=== PATIENT | female | born 1985 | race Caucasian/White ===

== ENCOUNTER 2018-03-12 09:50 | Day surgery (SDC) | payer BC ==
[~2018-03-12 09:50] MED LIST: Lactated Ringers 1,000 ML IV SCH; Sodium Chloride 0.9% 10 ML Syringe FLUSH PRN
[2018-03-12] MEDS ORDERED: Propofol 200 MG/20 ML SDV IV ONE (11:00)
--- NOTE | 2018-03-12 12:08 | PCM.OPNOTE ---
- General Post-Op/Procedure Note Date of Surgery/Procedure: 03/12/18 Operative Procedure(s): egd with bx. c scope with biopsy Findings: gastritis esophagitis sigmoid colon polyp hemorrhoids Pre Op Diagnosis: epigastric pain and hematochezia Post-Op Diagnosis: gastritis. esophagitis. sigmoid colon polyp. hemorrhoids Anesthesia Technique: [facility] [place] Primary Surgeon: Saturnino Bahena Anesthesia Provider: Ronaldo Maurre Pathology: stomach, esophagus and sigmoid polyp Complications: None Condition: Good Free Text/Narrative:: see dictation
--- NOTE | 2018-03-12 19:38 | OR ---
DATE OF OPERATION: 03/12/2018 SURGEON: Saturnino Bahena MD PROCEDURE PERFORMED: EGD, cold forceps biopsy, and colonoscopy with hot loop snare. INDICATIONS FOR PROCEDURE: This is a 32-year-old white female with symptomatic reflux. In addition, she has been having some hematochezia, so she has been offered and accepted both an upper and lower endoscopy. DESCRIPTION OF PROCEDURE: After an excellent IV sedation was administered, the bite block was inserted. The flexible endoscope was passed without difficulty down the patient's esophagus into the stomach. Stomach was insufflated. Scope was passed through the pylorus to the second portion of duodenum and slowly withdrawn. The following findings were noted. Duodenum was unremarkable. Stomach demonstrated some diffuse gastritis. Biopsies were taken. GE junction, erythema was noted in the distal 2-3 cm. Biopsies were taken of the distal esophagus. Remainder of the esophageal exam was unremarkable. The stomach was deflated. Scope was removed. Our attention was then turned to the colon. Digital rectal exam was performed. No marked abnormality was noted. Flexible colonoscope was inserted and advanced to the cecum without difficulty. The prep was marginal. We were able to irrigate and aspirate and get an excellent view of the colonic mucosa. The following findings were noted. Ascending colon, unremarkable. Transverse colon, unremarkable. Descending colon, unremarkable. Sigmoid, a pedunculated polyp, biopsied with a hot loop snare and sent for permanent. Rectum and anus, unremarkable. On retroflexion of the scope, there was some evidence of internal hemorrhoids. Colon was deflated. Scope was removed. Patient tolerated procedure well. Results by letter. /[id number] /MODL
== END 2018-03-12 13:08 | disposition home or self-care (01) ==
LOC: FB.SDS 09:50
PROVIDERS: ATTEND Surgery
DX: K92.1 Melena (principal); K21.9 Gastro-esophageal reflux disease without esophagitis; D12.5 Benign neoplasm of sigmoid colon; K64.8 Other hemorrhoids; K29.50 Unspecified chronic gastritis without bleeding; K20.9 Esophagitis, unspecified; H52.209 Unspecified astigmatism, unspecified eye; H52.10 Myopia, unspecified eye; J45.909 Unspecified asthma, uncomplicated; E66.9 Obesity, unspecified; Z68.44 Body mass index [BMI] 60.0-69.9, adult; F17.210 Nicotine dependence, cigarettes, uncomplicated; Z79.899 Other long term (current) drug therapy; F33.9 Major depressive disorder, recurrent, unspecified; Z88.8 Allergy status to other drugs, medicaments and biological substances
CPT/HCPCS: 43239; 45385; 70360; 80048; 81025; 85025; 87880; 88305; 88313; 88342; 96361; 96374; 96375; 99283; A9270; J1200; J2704; J2930; J7030; J7120

== ENCOUNTER 2018-03-12 18:52 | Emergency (ER) | payer BC ==
[2018-03-12] MEDS ORDERED: diphenhydrAMINE 50 MG/ML SDV IVPUSH STA (19:02)
[2018-03-12] MEDS ORDERED: Sodium Chloride 0.9% 1,000 ML IV SCH (19:15)
[2018-03-12] MEDS ORDERED: methylPREDNISolone Sodium Succinate 125 MG/2 ML SDV IVPUSH ONE (20:39)
[2018-03-12] MEDS ORDERED: Amoxicillin/Clavulanate K 875-125 MG Tab PO ONE (20:56)
--- NOTE | 2018-03-12 20:57 | EDM.PDOC ---
ED HPI GENERAL MEDICAL PROBLEM - General Chief Complaint: ENT Problem Stated Complaint: IRRITATED THROAT Time Seen by Provider: 03/12/18 18:52 Source of Information: Reports: Patient, Family History Limitations: Reports: No Limitations - History of Present Illness INITIAL COMMENTS - FREE TEXT/NARRATIVE: 32 y.o.w.f s/p upper and lower endoscopy in [place], d/c'd today, came to the ed because she thinks her tongue is swollen and she has a sore throat. Pt denies H/ O angioedema and does not take Lisinopril. Pt felt a blister at her right ant tongue as well. Pt stated she was intubated for her upper endoscopy because of the anatomy of her neck. No N/V/D or any other acute medical issues. BP 128/78 RR 18 Pulse ox 99% on RA pulse 78 temp 36.8 Onset Date: 03/12/18 Onset Time: 09:00 Duration: Hour(s): Location: Reports: Face Quality: Reports: Other (swelling of tongue ) Severity: Mild Improves with: Reports: Rest Worsens with: Reports: Movement Context: Reports: Other Associated Symptoms: Reports: No Other Symptoms throat and tongue Pain Score (Numeric/FACES): 8 - Related Data Allergies Allergy/AdvReac Type Severity Reaction Status Date / Time fluticasone [From Flonase] AdvReac Other Verified 03/12/18 19:05 Home Meds: Home Meds Acetaminophen/Caffeine [[facility] Tension Headache Gelcap] 2 each PO DAILY 03/11/18 [ History] Albuterol Sulfate 1.25 mg IH QID PRN 03/11/18 [History] Albuterol Sulfate [Proair Hfa] 2 puff INH Q4H PRN 03/11/18 [History] Beclomethasone Dipropionate [Qvar 40 Mcg] 2 puff INH BID 03/11/18 [History] Levocetirizine Dihydrochloride [Xyzal] 5 mg PO BEDTIME 03/11/18 [History] Montelukast Sodium 10 mg PO BEDTIME 03/11/18 [History] Pantoprazole Sodium 40 mg PO DAILY 03/11/18 [History] Phentermine HCl [Adipex-P] 37.5 mg PO DAILY 03/11/18 [History] Sucralfate 1 gm PO QID 03/11/18 [History] Venlafaxine HCl [Venlafaxine ER] 75 mg PO DAILY 03/11/18 [History] Venlafaxine HCl [Venlafaxine ER] 150 mg PO DAILY 03/11/18 [History] tiZANidine [Zanaflex] 0.5 - 1 mg PO TID PRN 03/11/18 [History] Amoxicillin 500 mg PO TID #30 tab 03/12/18 [Rx] predniSONE 20 mg PO WITHBREAKFAST #3 tab 03/12/18 [Rx] Past Medical History HEENT History: Reports: Impaired Vision Cardiovascular History: Reports: None Respiratory History: Reports: Asthma Gastrointestinal History: Reports: GERD, Other (See Below) Other Gastrointestinal History: CHRONIC INTERMITTENT DIARRHEA/ CONSTIPATION Genitourinary History: Reports: None 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 History: I PARA I Musculoskeletal History: Reports: None Neurological History: Reports: Migraines Psychiatric History: Reports: Anxiety Endocrine/Metabolic History: Reports: Obesity/BMI 30+ Hematologic History: Reports: None Immunologic History: Reports: None Oncologic (Cancer) History: Reports: None Dermatologic History: Reports: None - Infectious Disease History Infectious Disease History: Reports: Chicken Pox - Past Surgical History Head Surgeries/Procedures: Reports: None HEENT Surgical History: Reports: Oral Surgery Female Surgical History: Reports: Section Social & Family History - Family History Family Medical History: Noncontributory GI: Reports: GI bleed - Tobacco Use Smoking Status *Q: Current Every Day Smoker Years of Tobacco use: 12 Packs/Tins Daily: 1 - Caffeine Use Caffeine Use: Reports: Coffee - Recreational Drug Use Recreational Drug Use: No ED ROS ENT - Review of Systems Review Of Systems: See Below Constitutional: Reports: No Symptoms HEENT: Reports: Throat Pain, Other (swollen tongue) Respiratory: Reports: No Symptoms Cardiovascular: Reports: No Symptoms Endocrine: Reports: No Symptoms GI/Abdominal: Reports: No Symptoms : Reports: No Symptoms Musculoskeletal: Reports: No Symptoms Skin: Reports: No Symptoms Neurological: Reports: No Symptoms Psychiatric: Reports: No Symptoms Hematologic/Lymphatic: Reports: No Symptoms Immunologic: Reports: No Symptoms ED EXAM, ENT - Physical Exam Exam: See Below Exam Limited By: No Limitations General Appearance: Alert, Mild Distress, Obese (morbid) Eye Exam: Bilateral Eye: Normal Inspection Ears: Normal External Exam, Normal Canal, Hearing Grossly Normal, Normal TMs Nose: Normal Inspection, Normal Mucousa, No Blood Mouth/Throat: Normal Gums, Normal Lips, Normal Oropharynx, Tongue Swelling (nl tongue, however, pt feels her tongue is swollen) Head: Atraumatic, Normocephalic Neck: Normal Inspection, Supple, Non-Tender, Full Range of Motion Respiratory/Chest: No Respiratory Distress, Lungs Clear, Normal Breath Sounds, No Accessory Muscle Use, Chest Non-Tender Cardiovascular: Normal Peripheral Pulses, Regular Rate, Rhythm, No Edema, No Gallop, No JVD, No Murmur, No Rub GI/Abdominal: Normal Bowel Sounds, Soft, Non-Tender, No Organomegaly, No Distention, No Abnormal Bruit, No Mass (Female) Exam: Deferred Rectal (Female) Exam: Deferred Back: Normal Inspection, Full Range of Motion Extremities: Normal Inspection, Normal Range of Motion, Non-Tender, No Pedal Edema Neurological: Alert, Oriented, CN II-XII Intact, Normal Cognition, Normal Gait, Normal Reflexes, No Motor/Sensory Deficits Psychiatric: Normal Affect, Normal Mood Skin: Warm, Dry, Intact, Normal Color, No Rash, Lymphangitis Lymphatic: No Adenopathy Course - Vital Signs Text/Narrative:: 32 y.o.w.f s/p upper and lower endoscopy in [place], d/c'd today, came to the ed because she thinks her tongue is swollen and she has a sore throat. Pt denies H/ O angioedema and does not take Lisinopril. Pt felt a blister at her right ant tongue as well. Pt stated she was intubated for her upper endoscopy because of the anatomy of her neck. No N/V/D or any other acute medical issues. BP 128/78 RR 18 Pulse ox 99% on RA pulse 78 temp 36.8 PE: Morbid obese 32 y.o.w.f with sore throat and a blister at her right tongue Imaging: neck soft tissue: NAD, no epiglotitis Labs: CBC/BMP WBC was 13K, however RST was positive Impression: Strep throat. tongue blister, possible angioedema (tongue swelling) Tx: Augmentin, solu medrol, NS, [place] Reexam: Improved Plan: D/C with instructions Last Recorded V/S: Last Vital Signs Temp 36.6 C 08/15/18 21:10 Pulse 82 03/12/18 21:10 Resp 18 03/12/18 21:10 BP 119/69 03/12/18 21:10 Pulse Ox 100 03/12/18 21:10 - Orders/Labs/Meds Orders: Active Orders 24 hr Category Date Time Status Neck Soft Tissue [CR] Stat Exams 03/12/18 19:02 Taken STREP SCRN A RAPID W CULT CONF [RM] Stat Lab 03/12/18 20:40 Ordered Labs: Laboratory Tests 03/12/18 03/12/18 Range/Units 19:15 19:15 WBC 13.0 H (4.5-12.0) X10-3/uL RBC 5.11 (3.23-5.20) x10(6)uL Hgb 14.7 (11.5-15.5) g/dL Hct 42.8 (30.0-51.3) % MCV 83.8 (80-96) fL MCH 28.8 (27.7-33.6) pg MCHC 34.3 (32.2-35.4) g/dL RDW 12.4 (11.5-15.5) % Plt Count 245 (125-369) X10(3)uL MPV 8.6 (7.4-10.4) fL Neut % (Auto) 69.6 (46-82) % Lymph % (Auto) 26.0 (13-37) % [place] % (Auto) 3.8 L (4-12) % Eos % (Auto) 0 L (1.0-5.0) % Baso % (Auto) 0 (0-2) % Neut # (Auto) 9.0 H (1.6-8.3) # Lymph # (Auto) 3.4 (0.6-5.0) # [place] # (Auto) 0.5 (0.0-1.3) # Eos # (Auto) 0.0 (0.0-0.8) # Baso # (Auto) 0.1 (0.0-0.2) # Sodium 138 (135-145) mmol/L Potassium 4.0 (3.5-5.3) mmol/L Chloride 104 (100-110) mmol/L Carbon Dioxide 26 (21-32) mmol/L BUN 11 (7-18) mg/dL Creatinine 0.8 (0.55-1.02) mg/dL Est Cr Clr Drug Dosing TNP Estimated GFR (MDRD) > 60 (>60) BUN/Creatinine Ratio 13.8 (9-20) Glucose 88 (80-116) mg/dL Calcium 8.9 (8.6-10.2) mg/dL Meds: Medications Discontinued Medications Generic Name Dose Route Start Last Admin Trade Name Freq PRN Reason Stop Dose Admin Amoxicillin/Clavulanate Potassium 1 tab 03/12/18 20:56 03/12/18 20:59 Augmentin 875 Mg/125 Mg PO 03/12/18 20:57 1 tab ONETIME ONE Administration Diphenhydramine HCl 25 mg 03/12/18 19:02 03/12/18 19:21 Benadryl IVPUSH 03/12/18 19:03 25 mg ONETIME STA Administration Sodium Chloride 1,000 mls @ 125 mls/hr 03/12/18 19:15 03/12/18 19:20 Normal Saline IV 125 mls/hr ASDIRECTED ELIANA Administration Methylprednisolone Sodium Succinate 125 mg 03/12/18 20:39 03/12/18 20:43 Solu-Medrol IVPUSH 03/12/18 20:40 125 mg ONETIME ONE Administration Departure - Departure Time of Disposition: 21:00 Disposition: Home, Self-Care 01 Condition: Good Clinical Impression: Strep throat Angioedema Qualifiers: Encounter type: initial encounter Qualified Code(s): T78.3XXA - Angioneurotic edema, initial encounter - Discharge Information *PRESCRIPTION DRUG MONITORING PROGRAM REVIEWED*: Yes *COPY OF PRESCRIPTION DRUG MONITORING REPORT IN PATIENT ALMA: Yes Prescriptions: Amoxicillin 500 mg PO TID #30 tab predniSONE 20 mg PO WITHBREAKFAST #3 tab Instructions: Strep Throat, [id number] Referrals: Shawnee Mckeon NP [Primary Care Provider] - Forms: ED Department Discharge Additional Instructions: Please increase water intake, please take amoxicillin and prednison as recommended, please f/u, come back if your symptoms get worse acutely - My Orders Last 24 Hours: My Active Orders 03/12/18 19:02 Neck Soft Tissue [CR] Stat 03/12/18 20:40 STREP SCRN A RAPID W CULT CONF [RM] Stat - Assessment/Plan Last 24 Hours: My Active Orders 03/12/18 19:02 Neck Soft Tissue [CR] Stat 03/12/18 20:40 STREP SCRN A RAPID W CULT CONF [RM] Stat
== END 2018-03-12 21:10 | disposition home or self-care (01) ==
LOC: FB.ED 18:52
DX: T78.3XXA Angioneurotic edema, initial encounter (principal); S00.522A Blister (nonthermal) of oral cavity, initial encounter; J02.0 Streptococcal pharyngitis; F17.210 Nicotine dependence, cigarettes, uncomplicated; E66.9 Obesity, unspecified; Z88.8 Allergy status to other drugs, medicaments and biological substances; Z79.899 Other long term (current) drug therapy
CPT/HCPCS: 70360; 80048; 85025; 87880; 96361; 96374; 96375; 99283; A9270; J1200; J2930; J7030

== ENCOUNTER 2019-12-11 09:05 | Emergency (ER) | payer BC ==
[2019-12-11] MEDS ORDERED: Ibuprofen 600 MG Tab PO ONE (10:00)
--- NOTE | 2019-12-11 10:03 | EDM.PDOC ---
ED HPI GENERAL MEDICAL PROBLEM - General Chief Complaint: Lower Extremity Injury/Pain Stated Complaint: RT LEG INJURY Time Seen by Provider: 12/11/19 09:59 Source of Information: Reports: Patient History Limitations: Reports: No Limitations - History of Present Illness INITIAL COMMENTS - FREE TEXT/NARRATIVE: Patient complains of right lower leg and foot pain after getting her foot caught under a cabinet and twisting the leg @2 hours ago. Pain is mainly located to the right ankle, but also complains of right foot and knee pain to a lesser degree. 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: Acetaminophen, NSAIDS Right Lower Leg Pain Score (Numeric/FACES): 6 - Related Data Allergies Allergy/AdvReac Type Severity Reaction Status Date / Time fluticasone [From Flonase] Allergy Bleeding Verified 12/11/19 09:24 Home Meds: Home Meds Acetaminophen/HYDROcodone [[place] 325-5 MG] 1 - 2 tab PO Q6H PRN #20 tab [Rx] Fexofenadine [Jana] 180 mg PO DAILY 12/11/19 [History] Montelukast [Singulair] 10 mg PO DAILY 12/11/19 [History] Omeprazole 20 mg PO DAILY 12/11/19 [History] Venlafaxine [Effexor] 75 mg PO DAILY 12/11/19 [History] Past Medical History HEENT History: Reports: Allergic Rhinitis Cardiovascular History: Reports: Heart Murmur Other Cardiovascular History: as a child Respiratory History: Reports: Asthma 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 READING History: Reports: Polycystic Ovaries, Psychiatric History: Reports: Anxiety, Depression - Past Surgical History HEENT Surgical History: Reports: Other (See Below) Other HEENT Surgeries/Procedures: oral surgery Social & Family History - Family History Family Medical History: Noncontributory - Tobacco Use Smoking Status *Q: Current Every Day Smoker Years of Tobacco use: 15 Packs/Tins Daily: 0.5 - Caffeine Use Caffeine Use: Reports: Coffee, Energy Drinks, Soda - Recreational Drug Use Recreational Drug Use: No Review of Systems - Review of Systems Review Of Systems: Comprehensive ROS is negative, except as noted in HPI. ED EXAM, GENERAL - Physical Exam Exam: See Below Exam Limited By: No Limitations General Appearance: Alert, WD/WN, No Apparent Distress Head: Atraumatic, Normocephalic Neck: Full Range of Motion Respiratory/Chest: No Respiratory Distress Peripheral Pulses: 2+: Dorsalis Pedis (R) Extremities: Normal Capillary Refill, Other (tenderness to right medial foot, right lateral ankle, right distal lower leg and right posterior knee. No deformities.) Neurological: Alert, Normal Cognition, No Motor/Sensory Deficits Psychiatric: Normal Affect, Normal Mood Skin Exam: Warm, Dry, Intact ED TRAUMA EXTREMITY PROCEDURES - Splinting Right Lower Extremity Splint Site: Right short leg Pre-Procedure NV Status: Normal Post-Procedure NV Status: Normal Splint Material: Other (Orthoglass) Splint Design: Posterior Applied & Form Fitted By: Provider Provider Post-Splint Application NV Check: NV Status Normal, Good Position Complications: No Course - Vital Signs Last Recorded V/S: Last Vital Signs Temp 36.5 C 12/11/19 09:25 Pulse 78 12/11/19 09:25 Resp 20 12/11/19 09:25 BP 123/61 12/11/19 09:25 Pulse Ox 100 12/11/19 09:25 - Orders/Labs/Meds Orders: Active Orders 24 hr Category Date Time Status Foot Comp Min 3V Rt [CR] Stat Exams 12/11/19 09:58 Taken Tibia Fibula Rt [CR] Stat Exams 12/11/19 09:58 Taken Meds: Medications Discontinued Medications Generic Name Dose Route Start Last Admin Trade Name Freq PRN Reason Stop Dose Admin Ibuprofen 600 mg 12/11/19 10:00 12/11/19 10:05 Motrin PO 12/11/19 10:01 600 mg ONETIME ONE Administration - Radiology Interpretation Free Text/Narrative:: Right Foot Xray: No osseous abnormalities. (ED provider interpretation) Right Tib-Fib Xray: Non displace right distal fibula fracture. (ED provider interpretation) Departure - Departure Time of Disposition: 11:31 Disposition: Home, Self-Care 01 Condition: Good Clinical Impression: Fracture of distal fibula Qualifiers: Encounter type: initial encounter Fracture type: closed Fracture morphology: unspecified fracture morphology Laterality: right Qualified Code(s): S82.831A - Other fracture of upper and lower end of right fibula, initial encounter for closed fracture - Discharge Information *PRESCRIPTION DRUG MONITORING PROGRAM REVIEWED*: No *COPY OF PRESCRIPTION DRUG MONITORING REPORT IN PATIENT [place]MA: Not Applicable Prescriptions: Acetaminophen/HYDROcodone [[place] 325-5 MG] 1 - 2 tab PO Q6H PRN #20 tab PRN Reason: Pain Instructions: Crutch Use, Adult, [id number], Cast or Splint Care, Adult, Easy -to-Read, Nondisplaced Fibular Ankle Fracture Treated With Immobilization, Adult Referrals: Ravindra Hua MD [Ordering Only Provider] - 1 Week Forms: ED Department Discharge Additional Instructions: Fill the prescription for [place] and take as directed. Follow up with Orthopedic Surgery in 1 week (Dr. Hua @[facility]). Elevate the leg. Ice the area affected. Weight bear as tolerated. Sepsis Event Note - Evaluation Sepsis Screening Result: No Definite Risk - Focused Exam Vital Signs: Vital Signs Temp Pulse Resp BP Pulse Ox 12/11/19 09:25 36.5 C 78 20 123/61 100 Date Exam was Performed: 12/11/19 Time Exam was Performed: 11:28 - My Orders Last 24 Hours: My Active Orders 12/11/19 09:58 Foot Comp Min 3V Rt [CR] Stat Tibia Fibula Rt [CR] Stat - Assessment/Plan Last 24 Hours: My Active Orders 12/11/19 09:58 Foot Comp Min 3V Rt [CR] Stat Tibia Fibula Rt [CR] Stat
== END 2019-12-11 11:57 | disposition home or self-care (01) ==
LOC: MERGE 09:05 → FB.ED 09:05
DX: S82.831A Other fracture of upper and lower end of right fibula, initial encounter for closed fracture (principal); J45.909 Unspecified asthma, uncomplicated; F41.9 Anxiety disorder, unspecified; F32.9 Major depressive disorder, single episode, unspecified; F17.210 Nicotine dependence, cigarettes, uncomplicated; Z79.899 Other long term (current) drug therapy; Z88.8 Allergy status to other drugs, medicaments and biological substances; X50.1XXA Overexertion from prolonged static or awkward postures, initial encounter
CPT/HCPCS: 29515; 73590; 73630; 99283; A9270

== ENCOUNTER 2021-04-13 18:05 | Emergency (ER) | payer BC ==
[2021-04-13] MEDS ORDERED: Morphine 4 MG/ML VIAL IVPUSH ONE (18:22)
[2021-04-13] MEDS ORDERED: Ketorolac 30 MG/ML SDV IVPUSH ONE (18:23)
[2021-04-13] MEDS ORDERED: Sodium Chloride 0.9% 1,000 ML IV ONE (18:23)
[2021-04-13] MEDS ORDERED: Ondansetron 4 MG/2 ML SDV IVPUSH ONE (18:23)
[2021-04-13] MEDS ORDERED: Iopamidol 755 MG/ML 150 ML Bottle IV ONE (19:57)
--- NOTE | 2021-04-13 20:56 | EDM.PDOC ---
ED HPI GENERAL MEDICAL PROBLEM - General Chief Complaint: Abdominal Pain Stated Complaint: STOMACH PAIN Time Seen by Provider: 04/13/21 18:25 Source of Information: Reports: Patient History Limitations: Reports: No Limitations - History of Present Illness INITIAL COMMENTS - FREE TEXT/NARRATIVE: Patient presented to the ED because of right sided abdominal pain which started at 11:30 AM today. The pain is sharp and cramping, 8/10, with associated N/V x3.She has a chronic diarrhea due to her IBS. She also has decrease urination today. There is no fever but has some chills. Right Abdomen Pain Score (Numeric/FACES): 8 - Related Data Allergies Allergy/AdvReac Type Severity Reaction Status Date / Time fluticasone [From Flonase] AdvReac Other Verified 03/12/18 19:05 Home Meds: Home Meds Acetaminophen/Caffeine [[facility] Tension Headache Gelcap] 2 each PO DAILY 03/11/18 [History] Albuterol Sulfate 1.25 mg IH QID PRN 03/11/18 [History] Albuterol Sulfate [Proair Hfa] 2 puff INH Q4H PRN 03/11/18 [History] Montelukast Sodium 10 mg PO BEDTIME 03/11/18 [History] Venlafaxine HCl [Venlafaxine ER] 150 mg PO DAILY 03/11/18 [History] Fexofenadine [Jana] 180 mg PO DAILY 12/11/19 [History] Omeprazole 20 mg PO DAILY 12/11/19 [History] Norethindrone [Jessica] 0.35 mg PO DAILY 04/13/21 [History] Ondansetron [Zofran ODT] 4 mg PO Q4H PRN #5 tab.dis 04/13/21 [Rx] Past Medical History HEENT History: Reports: Allergic Rhinitis, Impaired Vision Cardiovascular History: Reports: Heart Murmur, None Other Cardiovascular History: as a child Respiratory History: Reports: Asthma Gastrointestinal History: Reports: GERD, Other (See Below) Other Gastrointestinal History: CHRONIC INTERMITTENT DIARRHEA/ CONSTIPATION Genitourinary History: Reports: None 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: Reports: Polycystic Ovaries, Other 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: I PARA I Musculoskeletal History: Reports: None Neurological History: Reports: Migraines Psychiatric History: Reports: Anxiety, Depression Endocrine/Metabolic History: Reports: Obesity/BMI 30+ Hematologic History: Reports: None Immunologic History: Reports: None Oncologic (Cancer) History: Reports: None Dermatologic History: Reports: None - Infectious Disease History Infectious Disease History: Reports: Chicken Pox - Past Surgical History Head Surgeries/Procedures: Reports: None HEENT Surgical History: Reports: Other (See Below), Oral Surgery Other HEENT Surgeries/Procedures: oral surgery Female Surgical History: Reports: Section Social & Family History - Family History Family Medical History: No Pertinent Family History GI: Reports: GI bleed - Tobacco Use Tobacco Use Status *Q: Current Every Day Tobacco User Years of Tobacco use: 10 Packs/Tins Daily: 0.7 - Caffeine Use Caffeine Use: Reports: Soda ED ROS GENERAL - Review of Systems Review Of Systems: See Below Constitutional: Reports: No Symptoms HEENT: Reports: No Symptoms Respiratory: Reports: No Symptoms Cardiovascular: Reports: No Symptoms Endocrine: Reports: No Symptoms GI/Abdominal: Reports: Abdominal Pain, Diarrhea, Nausea, Vomiting : Reports: No Symptoms Musculoskeletal: Reports: No Symptoms Skin: Reports: No Symptoms Neurological: Reports: No Symptoms Psychiatric: Reports: No Symptoms ED EXAM, GI/ABD - Physical Exam Exam: See Below Exam Limited By: No Limitations General Appearance: Alert, No Apparent Distress Ears: Normal External Exam, Normal Canal Nose: Normal Inspection, Normal Mucosa, No Blood Throat/Mouth: Normal Inspection, Normal Lips, Normal Teeth, Normal Gums, Normal Oropharynx, Normal Voice Head: Atraumatic, Normocephalic Neck: Normal Inspection, Supple, Non-Tender, Full Range of Motion Respiratory/Chest: No Respiratory Distress, Lungs Clear, Normal Breath Sounds, No Accessory Muscle Use, Chest Non-Tender Cardiovascular: Normal Peripheral Pulses, Regular Rate, Rhythm, No Edema, No Gallop, No JVD, No Murmur GI/Abdominal Exam: Soft, Other (RUQ/RLQ tenderness) Back Exam: Normal Inspection Extremities: Normal Inspection Neurological: Alert, Oriented, CN II-XII Intact Psychiatric: Normal Affect Course - Vital Signs Text/Narrative:: Lab/CT-abd/pelvis result was reviewed and discussed with patient NS 1 L bolus Zofran 4 mg IV x1 Toradol 30 mg IV x1 Morphine 4 mg IV x1 Last Recorded V/S: Last Vital Signs Temp 36.6 C 04/13/21 18:20 Pulse 101 H 04/13/21 18:20 Resp 18 04/13/21 18:20 BP 147/81 H 04/13/21 18:20 Pulse Ox 96 04/13/21 18:20 - Orders/Labs/Meds Orders: Active Orders 24 hr Category Date Time Status Abdomen Pelvis w Cont [CT] Stat Exams 04/13/21 19:51 Taken Sodium Chloride 0.9% [Normal Saline] 1,000 ml Med 04/13/21 18:23 Active IV .BOLUS Medication Orders Sodium Chloride (Normal Saline) 1,000 mls @ 999 drops/hr IV .BOLUS ONE Stop: 04/14/21 09:23 Last Admin: 04/13/21 18:40 Dose: 999 drops/hr Documented by: AILIN Labs: Laboratory Tests 04/13/21 04/13/21 04/13/21 Range/Units 19:00 19:00 19:00 WBC 14.6 H (3.0-10.3) x10-3/uL RBC 5.35 H (3.60-5.20) x10(6)uL Hgb 14.4 (11.4-15.5) g/dL Hct 44.2 (34.2-48.2) % MCV 82.5 (76.7-100.5) fL MCH 27.0 (23.9-33.9) pg MCHC 32.7 (31.9-34.8) g/dL RDW 13.8 (12.3-16.5) % Plt Count 307 (151-488) x10(3)uL MPV 8.5 (7.1-12.4) fL Neut % (Auto) 79.2 H (30.8-76.2) % Lymph % (Auto) 16.2 L (18.4-52.1) % [place] % (Auto) 2.8 L (4.4-15.7) % Eos % (Auto) 1.5 (0.6-8.1) % Baso % (Auto) 0.3 (0.2-1.5) % Neut # (Auto) 11.6 H (1.5-6.3) x10-3/uL Lymph # (Auto) 2.4 (1.0-4.4) x10-3/uL [place] # (Auto) 0.4 (0.3-1.0) x10-3/uL Eos # (Auto) 0.2 (0.0-0.8) x10-3/uL Baso # (Auto) 0.0 (0.0-0.1) x10-3/uL Sodium 140 (135-145) mmol/L Potassium 4.2 (3.5-5.3) mmol/L Chloride 103 (100-110) mmol/L Carbon Dioxide 25 (21-32) mmol/L BUN 10 (7-18) mg/dL Creatinine 0.8 (0.55-1.02) mg/dL Est Cr Clr Drug Dosing 88.32 mL/min Estimated GFR (MDRD) > 60 (>60) BUN/Creatinine Ratio 12.5 (9-20) Glucose 105 (80-116) mg/dL Calcium 9.1 (8.6-10.2) mg/dL Total Bilirubin 0.7 (0.1-1.3) mg/dL AST 22 (5-25) IU/L ALT 41 H (12-36) U/L Alkaline Phosphatase 83 (56-112) IU/L Total Protein 7.7 (6.0-8.0) g/dL Albumin 3.5 (3.5-5.2) g/dL Globulin 4.2 g/dL Albumin/Globulin Ratio 0.8 Amylase 27 (25-115) U/L Lipase 50 L (73-393) U/L HCG, Quant < 5 L (<5) mIU/mL Urine Color (YELLOW) Urine Appearance (CLEAR) Urine pH (5.0-6.5) Ur Specific [place] (1.010-1.025) Urine Protein (NEGATIVE) mg/dL Urine Glucose (UA) (NORMAL) mg/dL Urine Ketones (NEGATIVE) mg/dL Urine Occult Blood (NEGATIVE) Urine Nitrite (NEGATIVE) Urine Bilirubin (NEGATIVE) Urine Urobilinogen (NEGATIVE) mg/dL Ur Leukocyte Esterase (NEGATIVE) Urine RBC (0-5) Urine WBC (0-5) Ur Squamous Epith Cells (NS,R,O) Urine Bacteria (NS) 04/13/21 Range/Units 19:25 WBC (3.0-10.3) x10-3/uL RBC (3.60-5.20) x10(6)uL Hgb (11.4-15.5) g/dL Hct (34.2-48.2) % MCV (76.7-100.5) fL MCH (23.9-33.9) pg MCHC (31.9-34.8) g/dL RDW (12.3-16.5) % Plt Count (151-488) x10(3)uL MPV (7.1-12.4) fL Neut % (Auto) (30.8-76.2) % Lymph % (Auto) (18.4-52.1) % [place] % (Auto) (4.4-15.7) % Eos % (Auto) (0.6-8.1) % Baso % (Auto) (0.2-1.5) % Neut # (Auto) (1.5-6.3) x10-3/uL Lymph # (Auto) (1.0-4.4) x10-3/uL [place] # (Auto) (0.3-1.0) x10-3/uL Eos # (Auto) (0.0-0.8) x10-3/uL Baso # (Auto) (0.0-0.1) x10-3/uL Sodium (135-145) mmol/L Potassium (3.5-5.3) mmol/L Chloride (100-110) mmol/L Carbon Dioxide (21-32) mmol/L BUN (7-18) mg/dL Creatinine (0.55-1.02) mg/dL Est Cr Clr Drug Dosing mL/min Estimated GFR (MDRD) (>60) BUN/Creatinine Ratio (9-20) Glucose (80-116) mg/dL Calcium (8.6-10.2) mg/dL Total Bilirubin (0.1-1.3) mg/dL AST (5-25) IU/L ALT (12-36) U/L Alkaline Phosphatase (56-112) IU/L Total Protein (6.0-8.0) g/dL Albumin (3.5-5.2) g/dL Globulin g/dL Albumin/Globulin Ratio Amylase (25-115) U/L Lipase (73-393) U/L HCG, Quant (<5) mIU/mL Urine Color Yellow (YELLOW) Urine Appearance Clear (CLEAR) Urine pH 6.0 (5.0-6.5) Ur Specific [place] 1.020 (1.010-1.025) Urine Protein Negative (NEGATIVE) mg/dL Urine Glucose (UA) Normal (NORMAL) mg/dL Urine Ketones Negative (NEGATIVE) mg/dL Urine Occult Blood Negative (NEGATIVE) Urine Nitrite Negative (NEGATIVE) Urine Bilirubin Negative (NEGATIVE) Urine Urobilinogen Normal (NEGATIVE) mg/dL Ur Leukocyte Esterase Negative (NEGATIVE) Urine RBC 0-5 (0-5) Urine WBC 0-5 (0-5) Ur Squamous Epith Cells Moderate H (NS,R,O) Urine Bacteria Few H (NS) Meds: Medications Generic Name Dose Route Start Last Admin Trade Name Freq PRN Reason Stop Dose Admin Sodium Chloride 1,000 mls @ 999 drops/hr 04/13/21 18:23 04/13/21 18:40 Normal Saline IV 04/14/21 09:23 999 drops/hr .BOLUS ONE Administration Discontinued Medications Generic Name Dose Route Start Last Admin Trade Name Freq PRN Reason Stop Dose Admin Iopamidol 150 ml 04/13/21 19:57 04/13/21 20:12 Iopamidol 755 Mg/Ml 150 Ml Bottle IV 04/13/21 19:58 150 ml ONETIME ONE Administration Ketorolac Tromethamine 30 mg 04/13/21 18:23 04/13/21 18:44 Ketorolac 30 Mg/Ml Sdv IVPUSH 04/13/21 18:24 30 mg ONETIME ONE Administration Morphine Sulfate 4 mg 04/13/21 18:22 04/13/21 18:44 Morphine 4 Mg/Ml Vial IVPUSH 04/13/21 18:23 4 mg ONETIME ONE Administration Ondansetron HCl 4 mg 04/13/21 18:23 04/13/21 18:45 Ondansetron 4 Mg/2 Ml Sdv IVPUSH 04/13/21 18:24 4 mg ONETIME ONE Administration Departure - Departure Time of Disposition: 21:15 Disposition: Home, Self-Care 01 Condition: Good Clinical Impression: Gastroenteritis - Discharge Information Prescriptions: Ondansetron [Zofran ODT] 4 mg PO Q4H PRN #5 tab.dis PRN Reason: Nausea Instructions: Viral Gastroenteritis, Adult, [id number] Referrals: Shawnee Mckeon NP [Primary Care Provider] - Forms: ED Department Discharge Additional Instructions: Please read discharge instructions on viral gastroenteritis Frequent hand washing Drink 2-4 liters of water daily Zofran ODT 4 mg Every 4 hours as needed for nausea Imodium(over the counter) 2 tablets every 6 hours as needed for diarrhea Follow up as needed Sepsis Event Note (ED) - Evaluation Sepsis Screening Result: No Definite Risk - Focused Exam Vital Signs: Vital Signs Temp Pulse Resp BP Pulse Ox 04/13/21 18:20 36.6 C 101 H 18 147/81 H 96 - My Orders Last 24 Hours: My Active Orders 04/13/21 18:23 Sodium Chloride 0.9% [Normal Saline] 1,000 ml IV .BOLUS 04/13/21 19:51 Abdomen Pelvis w Cont [CT] Stat - Assessment/Plan Last 24 Hours: My Active Orders 04/13/21 18:23 Sodium Chloride 0.9% [Normal Saline] 1,000 ml IV .BOLUS 04/13/21 19:51 Abdomen Pelvis w Cont [CT] Stat
== END 2021-04-13 21:25 | disposition home or self-care (01) ==
LOC: FB.ED 18:05
DX: K52.9 Noninfective gastroenteritis and colitis, unspecified (principal); K21.9 Gastro-esophageal reflux disease without esophagitis; E66.9 Obesity, unspecified; Z88.8 Allergy status to other drugs, medicaments and biological substances; Z79.899 Other long term (current) drug therapy; Z72.0 Tobacco use; Z68.44 Body mass index [BMI] 60.0-69.9, adult
CPT/HCPCS: 74177; 80053; 81001; 82150; 83690; 84702; 85025; 96374; 96375; 99284; J1885; J2270; J2405; J7030; Q9967